=== PATIENT | female | born 1965 | race Hispanic/Latino ===

== ENCOUNTER 2019-10-12 13:54 | Outpatient (RCR) | payer MEDICARE | END 2019-10-18 | LOC: WCC 13:54 | PROVIDERS: ATTEND Internal Medicine Infectious Disease | DX: E11.69 Type 2 diabetes mellitus with other specified complication (principal); E11.65 Type 2 diabetes mellitus with hyperglycemia; S31.809A Unspecified open wound of unspecified buttock, initial encounter; R60.0 Localized edema; G90.09 Other idiopathic peripheral autonomic neuropathy; I89.0 Lymphedema, not elsewhere classified; J45.998 Other asthma; Y92.89 Other specified places as the place of occurrence of the external cause ==

== ENCOUNTER 2019-11-09 12:12 | Outpatient (RCR) | payer MEDICARE | END 2019-11-18 | LOC: WCC 12:12 | PROVIDERS: ATTEND Internal Medicine Infectious Disease | DX: E11.69 Type 2 diabetes mellitus with other specified complication (principal); E11.65 Type 2 diabetes mellitus with hyperglycemia; S31.809A Unspecified open wound of unspecified buttock, initial encounter; I89.0 Lymphedema, not elsewhere classified; R60.0 Localized edema; G90.09 Other idiopathic peripheral autonomic neuropathy; J45.998 Other asthma; E66.01 Morbid (severe) obesity due to excess calories; Y92.89 Other specified places as the place of occurrence of the external cause ==

== ENCOUNTER 2019-11-30 11:17 | Outpatient (RCR) | payer MEDICARE | END 2019-12-18 | LOC: WCC 11:17 | PROVIDERS: ATTEND Internal Medicine Infectious Disease | DX: E11.69 Type 2 diabetes mellitus with other specified complication (principal); E11.65 Type 2 diabetes mellitus with hyperglycemia; S31.809A Unspecified open wound of unspecified buttock, initial encounter; I89.0 Lymphedema, not elsewhere classified; G90.09 Other idiopathic peripheral autonomic neuropathy; J45.998 Other asthma; E66.01 Morbid (severe) obesity due to excess calories; Y92.89 Other specified places as the place of occurrence of the external cause ==

== ENCOUNTER 2020-01-04 11:02 | Outpatient (RCR) | payer MEDICARE | END 2020-01-18 | LOC: WCC 11:02 | PROVIDERS: ATTEND Internal Medicine Infectious Disease | DX: E11.69 Type 2 diabetes mellitus with other specified complication (principal); E11.65 Type 2 diabetes mellitus with hyperglycemia; S31.809A Unspecified open wound of unspecified buttock, initial encounter; I89.0 Lymphedema, not elsewhere classified; G90.09 Other idiopathic peripheral autonomic neuropathy; E66.01 Morbid (severe) obesity due to excess calories; J45.998 Other asthma; Y92.89 Other specified places as the place of occurrence of the external cause ==

== ENCOUNTER 2020-02-15 15:39 | Outpatient (RCR) | payer MEDICARE ==
[~2020-02-15 15:39] MED LIST: COLLAGENASE OINTMENT 30 GM TUBE ONE; LIDOCAINE VISC 2% SOLN 15 ML UDC ONE; LIDOCAINE/PRILOCAINE 2.5-2.5% KIT ONE
== END 2020-02-18 ==
LOC: WCC 15:39
PROVIDERS: ATTEND Internal Medicine Infectious Disease
DX: E11.65 Type 2 diabetes mellitus with hyperglycemia (principal); E11.69 Type 2 diabetes mellitus with other specified complication; S31.809A Unspecified open wound of unspecified buttock, initial encounter; I89.0 Lymphedema, not elsewhere classified; G90.09 Other idiopathic peripheral autonomic neuropathy; E66.01 Morbid (severe) obesity due to excess calories; J45.998 Other asthma; Y92.89 Other specified places as the place of occurrence of the external cause

== ENCOUNTER 2020-03-14 13:44 | Outpatient (RCR) | payer MEDICARE ==
[~2020-03-14 13:44] MED LIST changes: -LIDOCAINE VISC 2% SOLN 15 ML UDC ONE
== END 2020-03-19 ==
LOC: WCC 13:44
PROVIDERS: ATTEND Internal Medicine Infectious Disease
DX: E11.69 Type 2 diabetes mellitus with other specified complication (principal); E11.65 Type 2 diabetes mellitus with hyperglycemia; S31.809A Unspecified open wound of unspecified buttock, initial encounter; S81.801A Unspecified open wound, right lower leg, initial encounter; I89.0 Lymphedema, not elsewhere classified; G90.09 Other idiopathic peripheral autonomic neuropathy; E66.01 Morbid (severe) obesity due to excess calories; J45.998 Other asthma; W22.03XA Walked into furniture, initial encounter; Y92.89 Other specified places as the place of occurrence of the external cause
CPT/HCPCS: 87071; 87075; 87186; 87205

== ENCOUNTER 2020-04-04 13:22 | Outpatient (RCR) | payer MEDICARE ==
[~2020-04-04 13:22] MED LIST changes: +LIDOCAINE VISC 2% SOLN 15 ML UDC ONE
[2020-04-04] MEDS ORDERED: LIDOCAINE VISC 2% SOLN 15 ML UDC ONE (17:09)
[2020-04-04] MEDS ORDERED: COLLAGENASE OINTMENT 30 GM TUBE ONE (17:09)
== END 2020-04-19 ==
LOC: WCC 13:22
PROVIDERS: ATTEND Internal Medicine Infectious Disease
DX: E11.69 Type 2 diabetes mellitus with other specified complication (principal); E11.65 Type 2 diabetes mellitus with hyperglycemia; S31.809A Unspecified open wound of unspecified buttock, initial encounter; S31.801A Laceration without foreign body of unspecified buttock, initial encounter; G90.09 Other idiopathic peripheral autonomic neuropathy; I89.0 Lymphedema, not elsewhere classified; B96.89 Other specified bacterial agents as the cause of diseases classified elsewhere; E66.01 Morbid (severe) obesity due to excess calories; J45.998 Other asthma; W22.03XA Walked into furniture, initial encounter; Y92.89 Other specified places as the place of occurrence of the external cause
CPT/HCPCS: 36415; 82948